=== PATIENT | male | born 1985 | race Caucasian/White ===

== ENCOUNTER 2017-10-17 23:23 | Emergency (ER) | payer OTHER ==
[~2017-10-17] VITALS: Ht 182.9 cm; Wt 81.0 kg
[~2017-10-17 23:23] MED LIST: LORTA5 PO
[2017-10-17 23:30] VITALS: BP 135/86; PULSE 120; RESP 18; TEMP 98.9; O2SAT 96
[2017-10-18 00:54] VITALS: PULSE 110; PULSE 90; RESP 16; O2SAT 95
--- NOTE | 2017-10-18 01:07 | PD ---
HPI Chief Complaint: Laceration/Skin Injury Time Seen by Provider: 01:03 Travel History International Travel<30 days: No Contact w/Intl Traveler<30days: No Traveled to known affect area: No History of Present Illness HPI 32-year-old male presents to the emergency department by private transportation for injury to his left index finger. Patient is left-handed. Patient states tetanus status is current. Patient states just prior to arrival to the emergency department within the last 3 hours while using a Brillo pad at work to clean the table he was cut by the metal on the Brillo pad sustaining a laceration to the proximal left index finger just distal to the second MTP on the palmar aspect. Bleeding is controlled. Patient denies any numbness tingling or weakness of the digit denies any tendon injury. Patient has intact flexion and extension. The patient rates his pain 0/10 intensity. PFSH Past Medical History Narrative Medical Negative past medical history negative surgical history occasional alcohol use; nursing notes reviewed Medical History: Denies Significant Hx Tetanus Vaccination: < 5 Years Influenza Vaccination: Yes Past Surgical History Surgical History: No Previous Surgery Social History Alcohol Use: Yes Tobacco Use: No Substance Use: No Allergies-Medications (Allergen,Severity, Reaction): Coded Allergies: No Known Allergies (Unverified Adverse Reaction, Unknown, 10/18/17) Reported Meds & Prescriptions Reported Meds & Active Scripts Active No Active Prescriptions or Reported Medications Review of Systems Except as stated in HPI: all other systems reviewed are Neg Physical Exam Narrative General: Well-developed well-nourished male no acute distress or respiratory distress Extremity attention left hand palmar aspect just distal to the flexor surface of the second MCP capillary refill less than 2 seconds sensation intact digit is neurovascular tendon intact with intact flexion and extension at the DIP PIP and MCP. Data Data Last Documented VS Vital Signs Date Time Temp Pulse Resp B/P (MAP) Pulse Ox O2 Delivery O2 Flow Rate FiO2 10/18/17 01:59 90 16 130/80 (97) 97 10/18/17 00:54 Room Air 10/17/17 23:30 98.9 Orders Orders Lidocaine Pf 1% Inj (Xylocaine-Mpf 1% In (10/18/17 01:15) Ed Discharge Order (10/18/17 01:57) MDM Medical Decision Making Medical Screen Exam Complete: Yes Emergency Medical Condition: Yes Medical Record Reviewed: Yes Differential Diagnosis Laceration, neurovascular tendon injury, retained foreign body Narrative Course Laceration repair was performed sterile dressing applied; patient tolerated repair well. Procedures Procedure Narrative LACERATION LOCATION: left index finger LENGTH: 2 cm NUMBER OF STITCHES/DAVID: 3 REPAIR: The area of the laceration was prepped with Betadine and sterilely draped. The laceration was infiltrated with 1% lidocaine plain. The wound was copiously irrigated and explored without evidence of foreign body, tendon injury or neurovascular injury. The wound was closed using 5-0 nylon. This was a single layer repair. A sterile dressing was applied. The patient was advised to keep the dressing clean and dry. Patient tolerated the procedure well. Tetanus status current less than 1 year. Diagnosis Primary Impression: Laceration of left index finger Qualified Codes: S61.211A - Laceration without foreign body of left index finger without damage to nail, initial encounter Referrals: Primary Care Physician 2 days Patient Instructions: General Instructions Additional Instructions: Keep wound site clean and dry Wound check at 2 days suture removal at 7-10 days Apply topical antibiotic Return to the emergency department for any concerns or change in condition Follow-up with your primary care provider May take acetaminophen or ibuprofen per package directions as needed for discomfort or for fever 100.4F or greater Scripts No Active Prescriptions or Reported Meds Disposition: 01 DISCHARGE HOME Condition: Stable Conchita Barajas MD Oct 18, 2017 01:07
[2017-10-18] MEDS ORDERED: LIDOCAINE HCL 1% PF 10 ML VIAL INFIL ONE (01:15)
[2017-10-18 01:59] VITALS: BP 130/80
== END 2017-10-18 02:04 | disposition home or self-care (01) ==
LOC: PHED 23:23 → PHEFT 10-18 02:04
DX: S61.211A Laceration without foreign body of left index finger without damage to nail, initial encounter (principal); W26.8XXA Contact with other sharp object(s), not elsewhere classified, initial encounter; Y99.0 Civilian activity done for income or pay
CPT/HCPCS: 12001